=== PATIENT | female | born 1970 | race Caucasian/White ===

== ENCOUNTER 2018-02-13 18:20 | Emergency (ER) | payer OTHER ==
[2018-02-13 19:32] LABS: BILIRUBIN,URINE NEGATIVE (NEGATIVE); GLUCOSE, URINE (UA) NEGATIVE (NEGATIVE); KETONES,URINE (UA) NEGATIVE (NEGATIVE); LEUKOCYTE ESTERASE, URINE MODERATE (NEGATIVE); NITRITE,URINE NEGATIVE (NEGATIVE); OCCULT BLOOD,URINE TRACE-INTA (NEGATIVE); PROTEIN,URINE NEGATIVE (NEGATIVE); UROBILINOGEN,URINE 0.2 (NORMAL) E.U./dL (NORMAL)
[2018-02-13 19:39] LABS: CLARITY,URINE HAZY (CLEAR); HCG UR QUAL NEGATIVE
[2018-02-13 19:45] VITALS: BP 124/86
[2018-02-13 19:47] LABS: BACTERIA,URINE Few /HPF (None Seen); SQUAMOUS EPITHELIAL CELL,UR FEW Squamous (<= Few)
--- NOTE | 2018-02-13 20:12 | ED Physician Documentation ---
PD HPI ABD PAIN - Stated complaint Stated Complaint: ABD PX - Chief complaint Chief Complaint: Abd Pain - History obtained from History obtained from: Patient - History of Present Illness Timing - onset: How many days ago (5-6) Timing - duration: Days Timing - details: Gradual onset Pain level now: 6 Quality: Cramping, Pain Location: Other (initially across pelvis/lower abdomen, but now diffuse throughout abdomen) Radiation: No: Chest, , Lower back, Left flank, Left shoulder, Right flank, Right shoulder, Upper back Improved by: Other (nothing) Worsened by: Other (no exacerbating factors) Associated symptoms: Fever (subjective (felt as if she had a fever, did not cherie temp. at home)). No: Nausea, Vomiting, Diarrhea, Constipation Similar symptoms before: Diagnosis (similar to an episode of pyelonephritis she had in the past, although it has been many years and thus she is not particularly confident that these are same symptoms.) Recently seen: Not recently seen Review of Systems Constitutional: reports: Fever (subjective), Chills, Sweats Cardiac: reports: Reviewed and negative Respiratory: reports: Reviewed and negative GI: reports: Abdominal Pain. denies: Abdominal Swelling, Nausea, Vomiting, Constipation, Diarrhea : reports: Dysuria, Frequency Musculoskeletal: denies: Back pain PD PAST MEDICAL HISTORY - Past Medical History Past Medical History: No - Past Surgical History Past Surgical History: Yes General: Cholecystectomy - Present Medications Home Medications: Ambulatory Orders Medication Instructions Recorded Confirmed Amox/Clav 875/125 [Augmentin] 1 each PO Q12H #19 tablet 02/13/18 Hydrocodone/Acetaminophen 1 - 2 each PO Q6H PRN #10 tablet 02/13/18 [Hydrocodon-Acetaminophen 5-325] - Allergies Allergies/Adverse Reactions: Allergies Allergy/AdvReac Type Severity Reaction Status Date / Time No Known Drug Allergies Allergy Verified 02/13/18 18:47 - Living Situation Living Arrangement: reports: At home - Social History Does the pt smoke?: No PD ED PE NORMAL - Vitals Vital signs reviewed: Yes - General General: Alert and oriented X 3, No acute distress, Well developed/nourished - HEENT HEENT: Moist mucous membranes - Cardiac Cardiac: RRR, No murmur - Respiratory Respiratory: No respiratory distress, Clear bilaterally - Abdomen Abdomen: Normal bowel sounds, Soft, Other (mild tenderness periumbilicus, across lower abdomen (more pronounced left hemipelvis and midline suprapubic than remainder of pelvis and abdomen). no rebound nor guarding) - Back Back: Other (mild bilateral CVA tenderness) - Derm Derm: Normal color, Warm and dry Results - Vitals Vitals: Vital Signs - 24 hr 02/13/18 02/13/18 18:44 19:44 Temperature 37.7 C H Heart Rate 102 H 89 Respiratory 18 18 Rate Blood Pressure 132/90 H 124/86 H O2 Saturation 98 98 Oxygen O2 Source Room air - Labs Labs: Laboratory Tests 02/13/18 19:18 Urine Color YELLOW Urine Clarity HAZY Urine pH 7.0 Ur Specific Burney 1.015 Urine Protein NEGATIVE Urine Glucose (UA) NEGATIVE Urine Ketones NEGATIVE Urine Occult Blood TRACE-INTA Urine Nitrite NEGATIVE Urine Bilirubin NEGATIVE Urine Urobilinogen 0.2 (NORMAL) Ur Leukocyte Esterase MODERATE H Urine RBC 6-10 H Urine WBC >25 H Ur Squamous Epith Cells FEW Squamous Urine Bacteria Few Ur Microscopic Review INDICATED Urine Culture Comments INDICATED Urine HCG, Qual NEGATIVE PD MEDICAL DECISION MAKING - ED course Complexity details: reviewed results, considered differential, d/w patient ED course: UA s/o UTI. Offered patient further w/u, including blood tests and CT A/P (mainly looking for diverticulitis). She prefers to treat for suspected pyelonoephritis and defer further testing until and unless worsens, in which case she will return to ED. This is a reasonable alternative to further w/u now, and will give rocephin IM and augmentin PO with rx for augmentin (augmentin will have good chance of covering both pyelonephritis as well as diverticulitis). Departure - Departure Disposition: 01 Home, Self Care Clinical Impression: Pyelonephritis Condition: Good Instructions: ED Kidney Infec Female Follow-Up: [facility] [Provider Group] [facility] [Provider Group] Prescriptions: Amox/Clav 875/125 [Augmentin] 1 each PO Q12H #19 tablet Hydrocodone/Acetaminophen [Hydrocodon-Acetaminophen 5-325] 1 - 2 each PO Q6H PRN #10 tablet PRN Reason: pain Discharge Date/Time: 02/13/18 21:00
[2018-02-13] MEDS ORDERED: AMOX/CLAV 875 MG/125 MG TABLET PO STA (20:30)
[2018-02-13] MEDS ORDERED: LIDOCAINE 1% 2 ML VIAL SUBQ ONE (20:30)
[2018-02-13] MEDS ORDERED: cefTRIAXone 1 GM VIAL IM STA (20:30)
[2018-02-13] MEDS ORDERED: KETOROLAC 60 MG/2 ML VIAL IM STA (20:33)
[2018-02-13] MEDS ORDERED: HYDROcod/ACET 5/325 Prepack 4 PO STA (20:33)
== END 2018-02-13 21:00 | disposition home or self-care (01) ==
LOC: ED 18:20
DX: N12 Tubulo-interstitial nephritis, not specified as acute or chronic (principal)
CPT/HCPCS: 81001; 81025; 87086; 96372; 99283; 99284; A9270; 81003

== ENCOUNTER 2021-02-01 08:00 | Outpatient (CLI) | payer OTHER ==
--- NOTE | 2021-02-01 13:38 | XRAY Report ---
PROCEDURE: Ribs w/PA Chest LT INDICATIONS: LEFT SIDED RIB PAIN TECHNIQUE: 3 views of the left ribs were acquired, along with a single view chest. COMPARISON: None FINDINGS: Surgical changes and devices: None. Bones and chest wall: A marker is placed upon the area of pain. At this site, no fractures are seen. No fractures or dislocations are seen elsewhere. No suspicious bony lesions. Mild degenerative george nges are seen. The overlying soft tissues appear unremarkable. Lungs and pleura: No pleural effusions or pneumothorax. Lungs appear clear. Mediastinum: Mediastinal contours appear normal. Heart size is normal. IMPRESSION: No displaced rib fracture or pneumothorax can be seen. Reviewed by: Drake Smith MD on 02/01/2021 12:37 PM [facility] Approved by: Drake Smith MD on 02/01/2021 12:37 PM [facility] Station ID: [id number]
[2021-02-01 18:10] LABS: BASOPHILS # (AUTO) 0.1 10^3/uL (0.0-0.1); BASOPHILS % (AUTO) 1.3 %; EOSINOPHILS # (AUTO) 0.2 10^3/uL (0.0-0.7); EOSINOPHILS % (AUTO) 3.9 %; HCT - HEMATOCRIT 47.5 % (37.0-47.0); HGB - HEMOGLOBIN 16.6 g/dL (12.0-16.0); LYMPHOCYTES # (AUTO) 1.9 10^3/uL (1.5-3.5); LYMPHOCYTES % (AUTO) 31.5 %; MEAN CORPUSCULAR HEMOGLOBIN 34.5 pg (27.0-31.0); MEAN CORPUSCULAR HGB CONC 34.9 g/dL (32.0-36.0); MEAN CORPUSCULAR VOLUME 98.8 fL (81.0-99.0); MEAN PLATELET VOLUME 9.5 fL (7.9-10.8); MONOCYTES # (AUTO) 0.4 10^3/uL (0.0-1.0); NEUTROPHILS # (AUTO) 3.5 10^3/uL (1.5-6.6); PLT - PLATELET COUNT 238 10^3/uL (130-450); RED BLOOD COUNT 4.81 10^6/uL (4.20-5.40); RED CELL DISTRIBUTION WIDTH 11.4 % (12.0-15.0); WHITE BLOOD COUNT 6.2 x10^3/uL (4.8-10.8)
[2021-02-01 18:17] LABS: ALBUMIN 4.4 g/dL (3.2-5.5); ALBUMIN/GLOBULIN RATIO 1.2 (1.0-2.2); BILIRUBIN,TOTAL 1.1 mg/dL (0.2-1.0); CALCIUM 9.6 mg/dL (8.5-10.3); CREATININE 0.7 mg/dL (0.4-1.0); POTASSIUM 4.5 mmol/L (3.5-5.0); TOTAL PROTEIN 8.1 g/dL (6.7-8.2)
[2021-02-01 18:33] LABS: THYROID STIMULATING HORMONE 2.31 uIU/mL (0.34-5.60)
== END 2021-02-01 23:59 | disposition home or self-care (01) ==
LOC: DI.S 08:00
PROVIDERS: ATTEND Physician Assistant Medical
DX: R07.81 Pleurodynia (principal); I10 Essential (primary) hypertension
CPT/HCPCS: 36415; 80053; 84443; 85025

== ENCOUNTER 2021-02-19 08:00 | Outpatient (CLI) | payer OTHER ==
--- NOTE | 2021-02-19 16:25 | XRAY Report ---
PROCEDURE: Nasal Bones INDICATIONS: CONTUSION TO OTHER PART OF HEAD TECHNIQUE: 3 views of the nasal bones acquired. COMPARISON: None FINDINGS: Bones: Bilateral nondisplaced nasal bone fractures are noted. Nasal septum is midline. Normal nasoci liary nerve grooves are noted. Soft tissues: No suspicious soft tissue calcifications. IMPRESSION: Bilateral nondisplaced nasal bone fractures. Reviewed by: Sandra Bronson MD on 02/19/2021 4:23 PM [facility] Approved by: Sandra Bronson MD on 02/19/2021 4:23 PM [facility] Station ID: [id number]
== END 2021-02-19 23:59 | disposition home or self-care (01) ==
LOC: DI.S 08:00
PROVIDERS: ATTEND Physician Assistant Medical
DX: S02.2XXA Fracture of nasal bones, initial encounter for closed fracture (principal)

== ENCOUNTER 2021-07-11 08:00 | Outpatient (CLI) | payer OTHER ==
--- NOTE | 2021-07-11 10:38 | XRAY Report ---
PROCEDURE: Lumbar Spine 2 View INDICATIONS: LOW BACK PAIN TECHNIQUE: 3 views of the lumbar spine were acquired. COMPARISON: None. FINDINGS: Bones: 5 [id number] vertebrae are present. There is trace retrolisthesis of L3 on L4, L4-L5 an d L5 on S1. Multilevel moderate disc space narrowing is present. Bridging anterior osteophytes are pr esent at L3. Moderate to severe foraminal narrowing is present at L5-S1. No vertebral body compressio n fractures. No suspicious bony lesions. Soft tissues: Overlying bowel gas pattern is normal. No suspicious soft tissue calcifications. IMPRESSION: Degenerative changes most notable at L5-S1. Reviewed by: Sandra Bronson MD on 07/11/2021 10:36 AM PDT Approved by: Sandra Bronson MD on 07/11/2021 10:36 AM PDT Station ID: [id number]
== END 2021-07-11 23:59 | disposition home or self-care (01) ==
LOC: DI.S 08:00
PROVIDERS: ATTEND Physician Assistant
DX: M43.16 Spondylolisthesis, lumbar region (principal); M43.17 Spondylolisthesis, lumbosacral region; M47.816 Spondylosis without myelopathy or radiculopathy, lumbar region; M48.07 Spinal stenosis, lumbosacral region

== ENCOUNTER 2021-08-07 08:00 | Outpatient (CLI) | payer OTHER ==
--- NOTE | 2021-08-07 08:05 | XRAY Report ---
PROCEDURE: Chest 2 View X-Ray INDICATIONS: CHEST PAIN TECHNIQUE: 2 view(s) of the chest. COMPARISON: CXR 02/01/2021. FINDINGS: Surgical changes and devices: None. Lungs and pleura: No pleural effusions or pneumothorax. Lungs are clear. Mediastinum: Mediastinal contours are normal. Heart size is normal. Bones and chest wall: No suspicious bony abnormalities. Soft tissues appear unremarkable. IMPRESSION: No acute cardiopulmonary abnormality. Reviewed by: Charles Galicia MD on 08/07/2021 8:04 AM PDT Approved by: Charles Galicia MD on 08/07/2021 8:04 AM PDT Station ID: [id number]
[2021-08-07 15:47] LABS: BASOPHILS # (AUTO) 0.1 10^3/uL (0.0-0.1); BASOPHILS % (AUTO) 1.2 %; EOSINOPHILS # (AUTO) 0.4 10^3/uL (0.0-0.7); EOSINOPHILS % (AUTO) 4.8 %; HCT - HEMATOCRIT 47.8 % (37.0-47.0); HGB - HEMOGLOBIN 16.2 g/dL (12.0-16.0); LYMPHOCYTES # (AUTO) 2.4 10^3/uL (1.5-3.5); LYMPHOCYTES % (AUTO) 29.1 %; MEAN CORPUSCULAR HEMOGLOBIN 33.3 pg (27.0-31.0); MEAN CORPUSCULAR HGB CONC 33.9 g/dL (32.0-36.0); MEAN CORPUSCULAR VOLUME 98.4 fL (81.0-99.0); MEAN PLATELET VOLUME 10.2 fL (7.9-10.8); MONOCYTES # (AUTO) 0.6 10^3/uL (0.0-1.0); MONOCYTES % (AUTO) 6.9 %; NEUTROPHILS # (AUTO) 4.7 10^3/uL (1.5-6.6); NEUTROPHILS % (AUTO) 57.6 %; PLT - PLATELET COUNT 200 10^3/uL (130-450); RED BLOOD COUNT 4.86 10^6/uL (4.20-5.40); WHITE BLOOD COUNT 8.1 x10^3/uL (4.8-10.8)
[2021-08-07 16:44] LABS: ALBUMIN 3.9 g/dL (3.2-5.5); ALBUMIN/GLOBULIN RATIO 1.3 (1.0-2.2); BILIRUBIN,TOTAL 0.7 mg/dL (0.2-1.0); CALCIUM 9.5 mg/dL (8.5-10.3); CRP - C-REACTIVE PROTEIN 1.2 mg/dL (0-1.0); MAGNESIUM 1.8 mg/dL (1.7-2.8); POTASSIUM 4.4 mmol/L (3.5-5.0)
[2021-08-07 17:15] LABS: THYROID STIMULATING HORMONE 4.32 uIU/mL (0.34-5.60)
== END 2021-08-07 23:59 | disposition home or self-care (01) ==
LOC: DI.S 08:00
PROVIDERS: ATTEND Physician Assistant Medical
DX: R07.1 Chest pain on breathing (principal); R89.9 Unspecified abnormal finding in specimens from other organs, systems and tissues
CPT/HCPCS: 36415; 80053; 83735; 84443; 84484; 85025; 85651; 86140

== ENCOUNTER 2021-11-30 07:54 | Emergency (ER) | payer OTHER ==
[2021-11-30] MEDS ORDERED: oxyCODONE 5 MG TABLET PO STA ×2 (08:25→09:30)
--- NOTE | 2021-11-30 08:26 | ED Physician Documentation ---
History of Present Illness - Stated complaint Stated Complaint: FALL RIB/HIP PX - Chief complaint Chief Complaint: Trauma Ch/Bk - Additonal information Additional information: Patient is 51-year-old female presenting to the emergency department with left- sided shoulder, chest wall and hip pain. Pain ongoing since Tuesday. Reports tripped and fell while walking down stairs carrying laundry at her home. Has been taking ibuprofen at home with minimal relief. Was seen at urgent care earlier this morning and was referred to the emergency department for x-rays. Does report that she struck the side of her head but denies any loss of co nsciousness use of blood thinning medications. Otherwise denies for any headache, blurred vision, double vision, fevers, chills, neck pain, abdominal pain, nausea, vomiting, diarrhea or constipation. Review of Systems Ten Systems: 10 systems reviewed and negative Constitutional: denies: Fever Eyes: denies: Loss of vision Ears: denies: Loss of hearing Throat: denies: Dental pain / toothache Cardiac: denies: Palpitations GI: denies: Abdominal Pain : denies: Dysuria PD PAST MEDICAL HISTORY - Past Medical History GI: Cholelithiasis - Past Surgical History Past Surgical History: Yes General: Cholecystectomy - Present Medications Home Medications: Ambulatory Orders Medication Instructions Recorded Confirmed Amox/Clav 875/125 [Augmentin] 1 each PO Q12H #19 tablet 02/13/18 Hydrocodone/Acetaminophen 1 - 2 each PO Q6H PRN #10 tablet 02/13/18 [Hydrocodon-Acetaminophen 5-325] Acetaminophen [Tylenol] 650 mg PO Q6H PRN #30 tab 11/30/21 Ibuprofen [Motrin] 1 tablet PO Q8H PRN #30 tablet 11/30/21 Lidocaine Patch 5% [Lidoderm Patch] 1 patch TOP DAILY PRN #10 patch 11/30/21 Oxycodone HCl [Roxicodone] 5 mg PO Q6HR PRN #20 tablet 11/30/21 - Allergies Allergies/Adverse Reactions: Allergies Allergy/AdvReac Type Severity Reaction Status Date / Time No Known Drug Allergies Allergy Verified 11/30/21 08:17 - Social History Does the pt smoke?: No Smoking Status: Current every day smoker PD ED PE NORMAL - General General: Alert and oriented X 3, No acute distress - HEENT HEENT: Atraumatic, PERRL, EOMI, Ears normal - Neck Neck: Supple, no meningeal sign - Cardiac Cardiac: RRR, No gallop - Respiratory Respiratory: No respiratory distress, Other (Left-sided chest wall tenderness to palpation without crepitation or step-off. Negative for paradoxical breathing.) - Abdomen Abdomen: Normal bowel sounds - Female Female : Deferred - Rectal Rectal: Deferred - Back Back: No CVA TTP - Derm Derm: Normal color - Extremities Extremities: No deformity - Neuro Neuro: Alert and oriented X 3, manager qa 2-12 intact, No motor deficit Results - Vitals Vitals: Vital Signs - 24 hr 11/30/21 11/30/21 08:04 09:35 Temperature 36.3 C L Heart Rate 84 65 Respiratory 20 18 Rate Blood Pressure 150/83 H 127/93 H O2 Saturation 96 99 Oxygen O2 Source Room air PD MEDICAL DECISION MAKING - ED course Complexity details: reviewed results, d/w patient, d/w family ED course: Patient presents to the emergency department with 2 days pain left shoulder, chest wall and hip. Afebrile, hemodynamically stable. No tenderness to the cervical spine. Patient endorsed for mild head trauma without loss of consciousness or use of blood thinning medications. No ongoing headache, focal or lateralizing neurologic symptoms and no indication for advanced imaging of the brain. X-rays of the left shoulder showed some degenerative changes in the joint but no fracture. Chest and hip x-rays were similarly negative. Patient did have significant pain with attempting to abduct her left shoulder. She was provided with a shoulder sling. Additionally she was given medication for pain control. She passed an ambulatory trial here in the emergency department with the assistance of a walker. At this time I will discharge for follow-up with primary care. Will discharge with medication for symptomatic management including regular alternating Motrin and Tylenol as well as Roxicodone for breakthrough pain. She was encouraged to follow-up with primary care and or return to the emergency department as needed. Departure - Departure Disposition: 01 Home, Self Care Clinical Impression: Shoulder injury, Rib pain on left side, Hip pain Instructions: ED Contusion Chest Wall Prescriptions: Oxycodone HCl [Roxicodone] 5 mg PO Q6HR PRN #20 tablet PRN Reason: Pain Lidocaine Patch 5% [Lidoderm Patch] 1 patch TOP DAILY PRN #10 patch PRN Reason: pain Ibuprofen [Motrin] 1 tablet PO Q8H PRN #30 tablet PRN Reason: PAIN &/OR FEVER Acetaminophen [Tylenol] 650 mg PO Q6H PRN #30 tab PRN Reason: Pain Comments: Thank you for allowing us to care for you today at [facility]. The x-rays taken today of your shoulder, rib cage and hip did not show any acute fracture. As we discussed chest wall injuries can be persistent and quite painful and can take time to heal. I have written you for some medication to begin taking at home. I recommend regular alternating Motrin and Tylenol. I have also written you for a stronger narcotic pain medication known as Roxicodone. Please be aware that this medication is both sedating and habit-forming. It should not be used if you are operating a motor vehicle, using of machinery or you are the sole auto damage trainee of young children. It cannot be refilled in the emergency department. I do recommend acquiring a pill splitter and taking half doses until you are familiar with how this medication affects you personally. Please drink plenty of fluids. I recommend gentle activity as tolerated is complete inactivity can make pain such as which you are experiencing worse. It is also important that you follow-up with your primary care doctor soon as possible for medical recheck. If it anytime you have any new or worsening symptoms please not hesitate to return.
--- NOTE | 2021-11-30 09:07 | XRAY Report ---
PROCEDURE: Ribs w/PA Chest LT INDICATIONS: Trauma- Fall TECHNIQUE: 2 views of the left ribs were acquired, along with a single view chest. COMPARISON: None FINDINGS: Surgical changes and devices: None. Bones and chest wall: No fractures or dislocations. No suspicious bony lesions. Overlying soft tis sues appear unremarkable. Lungs and pleura: No pleural effusions or pneumothorax. Lungs appear clear. Mediastinum: Mediastinal contours appear normal. Heart size is normal. IMPRESSION: No visible displaced left rib fractures. No radiographic evidence of underlying chest trauma. Reviewed by: Louise Granados MD on 11/30/2021 9:05 AM PDT Approved by: Louise Granados MD on 11/30/2021 9:05 AM PDT Station ID: [id number]
--- NOTE | 2021-11-30 09:07 | XRAY Report ---
PROCEDURE: Shoulder 3 View LT INDICATIONS: Trauma- Fall TECHNIQUE: 3 views of the shoulder were acquired. COMPARISON: None. FINDINGS: Bones: No fractures or dislocations. Mild left AC joint degenerative spurring. No suspicious bony le sions. Visualized ribs appear intact. Soft tissues: No suspicious soft tissue calcifications. IMPRESSION: 1. Intact left shoulder with mild AC joint degeneration. Reviewed by: Louise Granados MD on 11/30/2021 9:06 AM PDT Approved by: Louise Granados MD on 11/30/2021 9:06 AM PDT Station ID: [id number]
--- NOTE | 2021-11-30 09:08 | XRAY Report ---
PROCEDURE: Hip w/Pelvis 2-3V LT INDICATIONS: Trauma- Fall TECHNIQUE: AP pelvis with lateral view(s) of the left hip(s). COMPARISON: None. FINDINGS: Bones: No fractures or dislocations. Pelvic ring appears intact. No suspicious bony lesions. Soft tissues: The visualized bowel gas pattern is normal. No suspicious soft tissue calcifications. IMPRESSION: No pelvic or left hip fracture visible. Reviewed by: Louise Granados MD on 11/30/2021 9:07 AM PDT Approved by: Louise Granados MD on 11/30/2021 9:07 AM PDT Station ID: [id number]
[2021-11-30] MEDS ORDERED: LIDOCAINE PATCH 5% TOP STA (09:30)
[2021-11-30] MEDS: IBUPROFEN 600 MG TABLET PO STA (09:49)
[2021-11-30 11:17] VITALS: BP 127/88
== END 2021-11-30 11:27 | disposition home or self-care (01) ==
LOC: ED 07:54
DX: S79.912A Unspecified injury of left hip, initial encounter (principal); S29.9XXA Unspecified injury of thorax, initial encounter; S09.90XA Unspecified injury of head, initial encounter; W10.9XXA Fall (on) (from) unspecified stairs and steps, initial encounter; F17.200 Nicotine dependence, unspecified, uncomplicated
CPT/HCPCS: 71101; 73030; 73502; 99284; A9270

== ENCOUNTER 2022-03-19 10:15 | Outpatient (CLI) | payer SELFPAY ==
--- NOTE | 2022-03-19 11:46 | XRAY Report ---
PROCEDURE: Ankle 3 View LT INDICATIONS: LEFT ANKLE PAIN TECHNIQUE: 3 views of the ankle were acquired. COMPARISON: None. FINDINGS: Bones: There is an oblique fracture of the distal fibula without displacement involving the ankle mo rtise. An oblique fracture seen in the medial malleolus. There is a small chip fracture of the heat sealing machine operator ior malleolus. Ankle mortise is widened medially. No suspicious bony lesions. Degenerative joint d isease. Calcaneus spurring. Soft tissues: Small tibiotalar joint effusion. Achilles tendon appears normal. IMPRESSION: 1. Trimalleolar fractures. 2. Widening of the medial ankle joint space. Reviewed by: Lorena Amato MD on 03/19/2022 11:45 AM PST Approved by: Lorena Amato MD on 03/19/2022 11:45 AM PST Station ID: [id number]
== END 2022-03-19 10:16 | disposition home or self-care (01) ==
LOC: DI.S 10:15
PROVIDERS: ATTEND Physician Assistant
DX: S82.852A Displaced trimalleolar fracture of left lower leg, initial encounter for closed fracture (principal); M19.072 Primary osteoarthritis, left ankle and foot

== ENCOUNTER 2022-10-19 15:41 | Emergency (ER) | payer MEDICAID ==
--- NOTE | 2022-10-19 15:58 | ED Physician Documentation ---
History of Present Illness - Stated complaint Stated Complaint: CHEST PX - Chief complaint Chief Complaint: Cardiac - Additonal information Additional information: Patient 52-year-old female presenting to the emergency department chief compl aint chest pain. Reports squeezing substernal chest pain that occurred earlier this morning. Reports has had similar episodes in the past about once every few months. It was sitting at her computer and not doing anything stressful or exertional at the time of the event. Does report that she had an espresso drink immediately prior to the event but does not report previous associations with food. Does endorse for history of hypertension. Returned home and contacted her primary care doctor and was referred to the emergency department. Currently denies any symptoms. No associated fever, shortness of breath, abdominal pain, Review of Systems Constitutional: denies: Fever Eyes: denies: Loss of vision Ears: denies: Loss of hearing Nose: denies: Rhinorrhea / runny nose Throat: denies: Dental pain / toothache Cardiac: reports: Chest pain / pressure, Palpitations Respiratory: denies: Dyspnea, Cough GI: denies: Abdominal Pain, Nausea, Vomiting : denies: Dysuria PD PAST MEDICAL HISTORY - Past Medical History GI: Cholelithiasis - Past Surgical History Past Surgical History: Yes General: Cholecystectomy - Present Medications Home Medications: Ambulatory Orders Medication Instructions Recorded Confirmed Amox/Clav 875/125 [Augmentin] 1 each PO Q12H #19 tablet 02/13/18 Hydrocodone/Acetaminophen 1 - 2 each PO Q6H PRN #10 tablet 02/13/18 [Hydrocodon-Acetaminophen 5-325] Acetaminophen [Tylenol] 650 mg PO Q6H PRN #30 tab 11/30/21 Ibuprofen [Motrin] 1 tablet PO Q8H PRN #30 tablet 11/30/21 Lidocaine Patch 5% [Lidoderm Patch] 1 patch TOP DAILY PRN #10 patch 11/30/21 Oxycodone HCl [Roxicodone] 5 mg PO Q6HR PRN #20 tablet 11/30/21 Pantoprazole [Protonix] 40 mg PO DAILY #30 tablet 10/19/22 - Allergies Allergies/Adverse Reactions: Allergies Allergy/AdvReac Type Severity Reaction Status Date / Time No Known Drug Allergies Allergy Verified 11/30/21 08:17 - Social History Does the pt smoke?: No Smoking Status: Current every day smoker PD ED PE NORMAL - General General: Alert and oriented X 3, No acute distress - HEENT HEENT: Atraumatic, PERRL - Neck Neck: Supple, no meningeal sign, No bony TTP, No adenopathy - Cardiac Cardiac: RRR, No gallop, Strong equal pulses - Respiratory Respiratory: No respiratory distress, Clear bilaterally, Other - Abdomen Abdomen: Normal bowel sounds, Soft, Non tender, Non distended - Female Female : Deferred - Rectal Rectal: Deferred - Back Back: No CVA TTP - Derm Derm: Normal color - Extremities Extremities: No deformity - Neuro Neuro: Alert and oriented X 3, orthopedic shoe maker 2-12 intact, No motor deficit, No sensory deficit, Normal speech Results - Vitals Vitals: Oxygen O2 Source Room air - EKG (time done) 1515 EKG releavant findings:: EKG personally interpreted by author of this note. Relevant findings are: Sinus rhythm with rate 71 bpm. Normal axis. Normal NH, QRS, QTc intervals. No ST segment elevations or T wave inversions. - Labs Labs: Laboratory Tests 10/19/22 10/19/22 10/19/22 16:11 16:11 16:30 WBC 7.5 RBC 4.76 Hgb 15.9 Hct 46.2 MCV 97.1 MCH 33.4 H MCHC 34.4 RDW 12.7 Plt Count 192 MPV 9.4 Neut # (Auto) 3.8 Lymph # (Auto) 2.9 [place] # (Auto) 0.4 Eos # (Auto) 0.3 Baso # (Auto) 0.1 Absolute Nucleated RBC 0.00 Nucleated RBC % 0.0 D-Dimer < 200.0 L Sodium 137 Potassium 3.9 Chloride 105 Carbon Dioxide 27 Anion Gap 5.0 L BUN 13 Creatinine 0.8 Estimated GFR (MDRD) 75 L Glucose 131 H Calcium 9.8 Total Bilirubin 0.6 AST 85 H ALT 77 H Alkaline Phosphatase 91 Troponin I High Sens 2.8 Total Protein 7.1 Albumin 4.3 Globulin 2.8 Albumin/Globulin Ratio 1.5 Lipase 51 10/19/22 17:44 WBC RBC Hgb Hct MCV MCH MCHC RDW Plt Count MPV Neut # (Auto) Lymph # (Auto) [place] # (Auto) Eos # (Auto) Baso # (Auto) Absolute Nucleated RBC Nucleated RBC % D-Dimer Sodium Potassium Chloride Carbon Dioxide Anion Gap BUN Creatinine Estimated GFR (MDRD) Glucose Calcium Total Bilirubin AST ALT Alkaline Phosphatase Troponin I High Sens 2.6 Total Protein Albumin Globulin Albumin/Globulin Ratio Lipase PD Medical Decision Making - ED course Complexity details: reviewed results, re-evaluated patient, d/w patient, d/w solar energy consultant and designer ED course: Patient 52-year-old female presenting to the emergency department with chief complaint of chest pain. Patient does have history of hypertension but is otherwise relatively low risk for coronary artery disease per heart scoring. Pain resolved prior to arrival. EKG benign. Serial high-sensitivity troponins benign. D-dimer negative. Chest x-ray negative for pneumothorax, mediastinal widening. At this time will discharge for follow-up with primary care. Will initiate course Protonix and encourage patient to abstain from caffeine in the immediate future. Clear return precautions given. Departure - Departure Disposition: 01 Home, Self Care Clinical Impression: Chest pain Qualifiers: Chest pain type: unspecified Qualified Code(s): R07.9 - Chest pain, unspecified Condition: Stable Instructions: ED Chest Pain Atypical Unkn Cause Prescriptions: Pantoprazole [Protonix] 40 mg PO DAILY #30 tablet Comments: Thank you for allowing us to care for you today would be general. Today in the emergency department your evaluated for any possible life- threatening medical emergency. All of the testing performed in the emergency department today including your blood work, EKG, chest x-ray were all very reassuring. As we discussed I will be prescribing a short course of an oral antiacid medication and like you to begin taking each morning. Please avoid caffeine for the time being. Please continue to follow-up carefully with your primary care doctor concerning your blood pressure as well as to discuss your ED visit. If it anytime you have a recurrent episode of chest pain or pressure or if you have any new or worsening symptoms please return to the emergency department. Forms: PCP List Discharge Date/Time: 10/19/22 18:37
[2022-10-19 16:16] LABS: BASOPHILS # (AUTO) 0.1 10^3/uL (0.0-0.1); BASOPHILS % (AUTO) 0.9 %; EOSINOPHILS # (AUTO) 0.3 10^3/uL (0.0-0.7); EOSINOPHILS % (AUTO) 3.6 %; HCT - HEMATOCRIT 46.2 % (37.0-47.0); HGB - HEMOGLOBIN 15.9 g/dL (12.0-16.0); LYMPHOCYTES # (AUTO) 2.9 10^3/uL (1.5-3.5); LYMPHOCYTES % (AUTO) 38.4 %; MEAN CORPUSCULAR HEMOGLOBIN 33.4 pg (27.0-31.0); MEAN CORPUSCULAR HGB CONC 34.4 g/dL (32.0-36.0); MEAN CORPUSCULAR VOLUME 97.1 fL (81.0-99.0); MEAN PLATELET VOLUME 9.4 fL (7.9-10.8); MONOCYTES # (AUTO) 0.4 10^3/uL (0.0-1.0); MONOCYTES % (AUTO) 5.5 %; NEUTROPHILS # (AUTO) 3.8 10^3/uL (1.5-6.6); NEUTROPHILS % (AUTO) 51.5 %; PLT - PLATELET COUNT 192 10^3/uL (130-450); RED BLOOD COUNT 4.76 10^6/uL (4.20-5.40); RED CELL DISTRIBUTION WIDTH 12.7 % (12.0-15.0); WHITE BLOOD COUNT 7.5 x10^3/uL (4.8-10.8)
--- NOTE | 2022-10-19 16:31 | XRAY Report ---
PROCEDURE: Chest 1 View X-Ray INDICATIONS: Chest Pain TECHNIQUE: One view of the chest was acquired. COMPARISON: None. FINDINGS: Surgical changes and devices: None. Lungs and pleura: No pleural effusions or pneumothorax. Lungs are clear. Mediastinum: Mediastinal contours appear normal. Heart size is normal. Bones and chest wall: No suspicious bony lesions. Overlying soft tissues appear unremarkable. IMPRESSION: No acute cardiopulmonary process. Reviewed by: Serena Vance MD, PhD on 10/19/2022 4:29 PM PDT Approved by: Serena Vance MD, PhD on 10/19/2022 4:29 PM PDT Station ID: [id number]
[2022-10-19 16:34] LABS: ALBUMIN 4.3 g/dL (3.2-5.5); ALBUMIN/GLOBULIN RATIO 1.5 (1.0-2.2); BILIRUBIN,TOTAL 0.6 mg/dL (0.2-1.0); CALCIUM 9.8 mg/dL (8.5-10.3); CREATININE 0.8 mg/dL (0.6-1.3); POTASSIUM 3.9 mmol/L (3.5-4.5); TOTAL PROTEIN 7.1 g/dL (6.4-8.9)
[2022-10-19 16:38] LABS: TROPONIN I HIGH SENSITIVITY 2.8 ng/L (2.3-14.8)
[2022-10-19] MEDS ORDERED: GI COCKTAIL 120 ML BOTTLE PO PRN (17:37)
[2022-10-19 18:45] VITALS: BP 130/80; O2SAT 100
== END 2022-10-19 18:37 | disposition home or self-care (01) ==
LOC: ED 15:41
DX: R07.9 Chest pain, unspecified (principal); F17.200 Nicotine dependence, unspecified, uncomplicated
CPT/HCPCS: 36415; 71045; 80053; 83690; 84484; 85025; 85379; 93005; 99284; A9270

== ENCOUNTER 2023-06-29 08:54 | Emergency (ER) | payer MEDICAID, OTHER ==
--- NOTE | 2023-06-29 09:53 | ED Physician Documentation ---
PD HPI ABD PAIN - Stated complaint Stated Complaint: ABD PX - Chief complaint Chief Complaint: Abd Pain - History obtained from History obtained from: Patient - History of Present Illness Timing - onset: Yesterday (has history of GERD and intermittent gastric pains with certain foods, but had onset of persistent and severe pains epigastric starting yesterday that has persisted, worse with eating but not improved with TUMs, antacids. Took extra dose of omeprazole without improvemnt.) Timing - details: Gradual onset, Still present, Waxing and waning Quality: Cramping, Aching, Pain Location: Epigastric Radiation: No: Chest, Lower back Improved by: No: Eating, Position, Meds Worsened by: Eating. No: Position Associated symptoms: Nausea. No: Fever, Vomiting, Diarrhea, Melena Similar symptoms before: Diagnosis (GERD/gastritis symptoms in past often but not ever to this degree.) Recently seen: Clinic (few e=weeks ago and had her omeprazole dose decreased from DQ to DOD since was doing well with her symptoms.) Review of Systems Constitutional: denies: Fever, Chills Cardiac: denies: Chest pain / pressure Respiratory: denies: Dyspnea, Cough GI: reports: Abdominal Pain, Nausea. denies: Vomiting, Diarrhea, Bloody / black stool PD PAST MEDICAL HISTORY - Past Medical History Past Medical History: Yes Cardiovascular: Hypertension GI: GERD, Cholelithiasis - Past Surgical History Past Surgical History: Yes General: Cholecystectomy HEENT: Tonsil/Adenoidectomy - Present Medications Home Medications: Ambulatory Orders Medication Instructions Recorded Confirmed HYDROcod/ACETAM 5/325 [Apache 5/325] 1 ea PO Q6H PRN #18 tablet 06/29/23 Lidocaine Viscous 2% [Xylocaine 5 ml PO Q4H PRN #100 ml 06/29/23 Viscous 2%] Naproxen 500 mg PO BID PRN 06/29/23 06/29/23 Omeprazole 20 mg PO DAILY 06/29/23 06/29/23 Propranolol [Inderal] 20 mg PO DAILY 06/29/23 06/29/23 Sucralfate [Carafate] 1 gm PO ACHS #60 tablet 06/29/23 Sucralfate [Carafate] 1 gm PO ACHS 10 Days #400 ml 06/29/23 - Allergies Allergies/Adverse Reactions: Allergies Allergy/AdvReac Type Severity Reaction Status Date / Time No Known Drug Allergies Allergy Verified 06/29/23 09:29 - Social History Does the pt smoke?: No Smoking Status: Former smoker Does the pt drink ETOH?: No Does the pt have substance abuse?: Yes PD ED PE NORMAL - Vitals Vital signs reviewed: Yes - General General: Alert and oriented X 3, No acute distress, Well developed/nourished - Neck Neck: Supple, no meningeal sign, No adenopathy - Cardiac Cardiac: RRR, No murmur - Respiratory Respiratory: No respiratory distress, Clear bilaterally - Abdomen Abdomen: Normal bowel sounds, Soft, Non distended, Other (tender with local guarding and mild rebound in epigastric area. Not particularly tender RUQ. Lower abd not tender and no distension. ) Results - Vitals Vitals: Vital Signs - 24 hr 06/29/23 06/29/23 06/29/23 11:29 12:58 14:41 Temperature 36.7 C Heart Rate 63 60 58 L Respiratory 17 17 15 Rate Blood Pressure 120/96 H 132/78 H 138/87 H O2 Saturation 98 99 98 Oxygen O2 Source Room air - Labs Labs: Laboratory Tests 06/29/23 06/29/23 06/29/23 10:26 10:26 10:26 WBC 9.5 RBC 4.91 Hgb 16.9 H Hct 48.6 H MCV 99.0 MCH 34.4 H MCHC 34.8 RDW 12.3 Plt Count 171 MPV 9.4 Neut # (Auto) 5.8 Lymph # (Auto) 2.7 [place] # (Auto) 0.7 Eos # (Auto) 0.3 Baso # (Auto) 0.1 Absolute Nucleated RBC 0.00 Nucleated RBC % 0.0 Sodium 136 Potassium 4.2 Chloride 99 L Carbon Dioxide 30 Anion Gap 7.0 BUN 11 Creatinine 0.8 Estimated GFR (MDRD) 75 L Glucose 104 Calcium 10.5 H Total Bilirubin 1.1 H AST 51 H ALT 65 H Alkaline Phosphatase 92 Troponin I High Sens < 2.3 L Total Protein 7.6 Albumin 4.4 Globulin 3.2 Albumin/Globulin Ratio 1.4 Lipase 34 Urine Color Urine Clarity Urine pH Ur Specific [place] Urine Protein Urine Glucose (UA) Urine Ketones Urine Occult Blood Urine Nitrite Urine Bilirubin Urine Urobilinogen Ur Leukocyte Esterase Ur Microscopic Review Urine Culture Comments 06/29/23 10:30 WBC RBC Hgb Hct MCV MCH MCHC RDW Plt Count MPV Neut # (Auto) Lymph # (Auto) [place] # (Auto) Eos # (Auto) Baso # (Auto) Absolute Nucleated RBC Nucleated RBC % Sodium Potassium Chloride Carbon Dioxide Anion Gap BUN Creatinine Estimated GFR (MDRD) Glucose Calcium Total Bilirubin AST ALT Alkaline Phosphatase Troponin I High Sens Total Protein Albumin Globulin Albumin/Globulin Ratio Lipase Urine Color DARK YELLOW Urine Clarity CLEAR Urine pH 6.0 Ur Specific [place] 1.010 Urine Protein NEGATIVE Urine Glucose (UA) NEGATIVE Urine Ketones NEGATIVE Urine Occult Blood NEGATIVE Urine Nitrite NEGATIVE Urine Bilirubin NEGATIVE Urine Urobilinogen 0.2 (NORMAL) Ur Leukocyte Esterase NEGATIVE Ur Microscopic Review NOT INDICATED Urine Culture Comments NOT INDICATED - Rads (name of study) chest xray Relevant Findings:: Prelim report reviewed, EMP independent interpretation of test (no acutee process) abd/pelvic CT Relevant Findings:: Prelim report reviewed (GB absent. Normal common bile duct, pancreas. Hepatic steatosis. Normal aorta. No mention of free air/fluid. Diverticula wihtout diverticulitis. ), EMP independent interpretation of test PD Medical Decision Making - ED course Complexity details: reviewed results (prolonged delay of over [address] report as imaging apparently did not fully cross on [facility] end so Radiologist unaware of pending reads. Subsequently fixed and got readings. No acute process. ), re-evaluated patient (moderate improvement with Lido/mylanta and carafate. She is driving home so we discussed not giving opioid meds here and she agrees, rather than finding ride. ), considered differential ( gastritis/ulcer type pain but not reasonably improved with antacids and is persistent even when resting. Tender locally with guarding. Concern for alternate dx such as pancreatic, biliary, diverticulitis transverse colon, or complicated stomach issues such as perforation. Will get labs, CT. ), d/w patient Reviewed Lab Results: Labs showing normal lipase 34 and minimally elevated LFTs with bili 1.1 (nl up to 1.0) and AST/ALT in 50-60 range. Normal alk phos at 92. CT showing noral common bile duct without dilation, absent gallbladder, no noted perforations or such around stomach. Diverticula wihtout diverticulitis. She had recently been decreased on her omeprazole from daily to every other day by her PCP. This was 3 weeks ago. I would suggest a failure of this weaning amount and have her return to daily, and short term can go BID and add Carafate. See if improves ad then continue on daily. If still with difficult symptoms, then consider H.Pylori testing as well. Departure - Departure Disposition: 01 Home, Self Care Clinical Impression: Epigastric abdominal pain Condition: Stable Record reviewed to determine appropriate education?: Yes Instructions: ED PUD Vs Gastritis, ED Epigastric Pain [facility] Follow-Up: Evon Lawson ARNP [Primary Care Provider] - Prescriptions: Sucralfate [Carafate] 1 gm PO ACHS 10 Days #400 ml Sucralfate [Carafate] 1 gm PO ACHS #60 tablet HYDROcod/ACETAM 5/325 [[place] 5/325] 1 ea PO Q6H PRN #18 tablet PRN Reason: Pain Lidocaine Viscous 2% [Xylocaine Viscous 2%] 5 ml PO Q4H PRN #100 ml PRN Reason: Pain Comments: I would resume your omeprazole daily and actually is heart back with it at twice a day for the next week and then once daily from there. In addition we can coat the stomach several times daily with sacral fate which acts to coat the surface and is "stickier" then regular antacids and such. Add antacid such as Maalox or Mylanta with the lidocaine as needed for discomfort. Avoid NSAIDs, alcohol, spicy foods. Tylenol 500 mg 4 times daily as needed for pain or hydrocodone/acetaminophen if needed for worse pain. This would hopefully be intended short-term until your stomach has a better chance of healing. You do have a slight elevation of liver enzymes but not significantly. No signs of problems with your common bile duct or pancreas. No signs of perforation around the stomach. Presume you have a enough erosion and irritation in the esophagus or stomach to be hurting and not responding to just surface treatment like the antacids. Follow-up with your primary care in about a week, call for an appointment. I sent your prescriptions to the [facility] in [place]. Return if worse. I am prescribing a short course of narcotic pain medication for you. These are potentially dangerous and addictive medications that should be used carefully. These medications may constipate you. Take an [id number] stool softener such as docusate twice daily with plenty of water while taking these medications. If you go 24 hours without a bowel movement, take [id number] MiraLAX, per package instructions. Do not drink or drive while taking these medications. If you received narcotic or sedating medications while in the emergency department do not drive for 24 hours. Store this medication in a safe, secure place and out of reach of children. It is a violation of federal law to give or sell this medication to another person or to use in a manner other than prescribed. The ED will not refill narcotic prescriptions, including prescriptions lost or stolen. You can dispose of unwanted medications at the [facility]'s office or at several pharmacies such as [facility]. Forms: PCP List, Activity restrictions Discharge Date/Time: 06/29/23 14:48
[2023-06-29 10:36] LABS: BASOPHILS # (AUTO) 0.1 10^3/uL (0.0-0.1); EOSINOPHILS # (AUTO) 0.3 10^3/uL (0.0-0.7); EOSINOPHILS % (AUTO) 2.9 %; HCT - HEMATOCRIT 48.6 % (37.0-47.0); HGB - HEMOGLOBIN 16.9 g/dL (12.0-16.0); LYMPHOCYTES # (AUTO) 2.7 10^3/uL (1.5-3.5); MEAN CORPUSCULAR HEMOGLOBIN 34.4 pg (27.0-31.0); MEAN CORPUSCULAR HGB CONC 34.8 g/dL (32.0-36.0); MEAN PLATELET VOLUME 9.4 fL (7.9-10.8); MONOCYTES # (AUTO) 0.7 10^3/uL (0.0-1.0); MONOCYTES % (AUTO) 7.3 %; NEUTROPHILS # (AUTO) 5.8 10^3/uL (1.5-6.6); NEUTROPHILS % (AUTO) 60.5 %; PLT - PLATELET COUNT 171 10^3/uL (130-450); RED BLOOD COUNT 4.91 10^6/uL (4.20-5.40); RED CELL DISTRIBUTION WIDTH 12.3 % (12.0-15.0); WHITE BLOOD COUNT 9.5 x10^3/uL (4.8-10.8)
[2023-06-29] MEDS: LIDOCAINE VISCOUS 2% 15 ML UDC MM STA ×2 (10:42→14:29)
[2023-06-29] MEDS: MAG HYDROX/AL HYDROX/SIMETH 30 ML UDC PO STA ×2 (10:42→14:29)
[2023-06-29] MEDS: KETOROLAC 15 MG/ML VIAL IVP STA (10:43)
[2023-06-29] MEDS: FAMOTIDINE 20 MG/2 ML VIAL IVP STA (10:43)
[2023-06-29 10:55] LABS: BILIRUBIN,URINE NEGATIVE (NEGATIVE); CLARITY,URINE CLEAR (CLEAR); GLUCOSE, URINE (UA) NEGATIVE (NEGATIVE); KETONES,URINE (UA) NEGATIVE (NEGATIVE); LEUKOCYTE ESTERASE, URINE NEGATIVE (NEGATIVE); NITRITE,URINE NEGATIVE (NEGATIVE); OCCULT BLOOD,URINE NEGATIVE (NEGATIVE); PROTEIN,URINE NEGATIVE (NEGATIVE); UROBILINOGEN,URINE 0.2 (NORMAL) E.U./dL (NORMAL)
[2023-06-29 11:05] LABS: ALBUMIN 4.4 g/dL (3.2-5.5); ALBUMIN/GLOBULIN RATIO 1.4 (1.0-2.2); BILIRUBIN,TOTAL 1.1 mg/dL (0.2-1.0); CALCIUM 10.5 mg/dL (8.5-10.3); CREATININE 0.8 mg/dL (0.6-1.3); POTASSIUM 4.2 mmol/L (3.5-4.5); TOTAL PROTEIN 7.6 g/dL (6.4-8.9)
[2023-06-29] MEDS ORDERED: iohexoL-300 100 ML VIAL ONE (11:15)
--- NOTE | 2023-06-29 11:36 | XRAY Report ---
PROCEDURE: Chest 1V INDICATIONS: epigastric pain TECHNIQUE: One view of the chest was acquired. COMPARISON: Chest radiograph 10/19/2022. FINDINGS: Surgical changes and devices: None. Lungs and pleura: No pleural effusions or pneumothorax. Lungs are clear. Mediastinum: Mediastinal contours appear normal. Heart size is normal. Bones and chest wall: No suspicious bony lesions. Overlying soft tissues appear unremarkable. IMPRESSION: No acute cardiopulmonary process. Reviewed by: Martina Carpenter MD, PhD on 06/29/2023 11:35 AM PDT Approved by: Martina Carpenter MD, PhD on 06/29/2023 11:35 AM PDT Station ID: [id number]
[2023-06-29] MEDS: iohexoL-300 100 ML VIAL IVP ONE (11:59)
--- NOTE | 2023-06-29 13:46 | CT Report ---
PROCEDURE: Abdomen/Pelvis W INDICATIONS: epigastric pain abrupt CONTRAST: 100 TECHNIQUE: After the administration of intravenous contrast, a CT scan of the abdomen and pelvis was performed. Images were recorded and evaluated at appropriate window settings. Reformats: coronal and sagittal. F or radiation dose reduction, the following was used: automated exposure control, adjustment of mA and /or kV according to patient size. COMPARISON: None. FINDINGS: Image quality: Diagnostic. Lower chest: Bibasilar atelectasis. Liver: No solid mass. Hepatic steatosis. Gallbladder and biliary tree: Surgically absent. No biliary dilation, accounting for post-cholecystec yojana state. Spleen: No splenomegaly. Pancreas: No pancreatic ductal dilation. Adrenals: No adrenal nodule. Kidneys and ureters: No hydronephrosis. No renal cystic lesion which requires follow up. No solid mas s. Stomach, bowel and peritoneum: No bowel distension. No pathologic free fluid. Diverticulosis without evidence of diverticulitis. Lymph nodes: No central or retroperitoneal adenopathy. Vessels: No infrarenal aortic aneurysm. PELVIS Reproductive organs: Unremarkable. Bladder: No abnormal wall thickening, accounting for underdistention. Pelvic lymph nodes: No pelvic adenopathy by size criteria. Bones: No aggressive osseous abnormality. Other: No significant ventral or inguinal hernia. IMPRESSION: Hepatic steatosis. No other acute process in the abdomen or pelvis visualized to explain patient's sy mptoms.. Reviewed by: Martina Carpenter MD, PhD on 06/29/2023 1:45 PM PDT Approved by: Martina Carpenter MD, PhD on 06/29/2023 1:45 PM PDT Station ID: [id number]
[2023-06-29] MEDS: SUCRALFATE 1 GM/10 ML UDC PO STA (14:29)
[2023-06-29 14:59] VITALS: BP 138/87; O2SAT 98
== END 2023-06-29 14:48 | disposition home or self-care (01) ==
LOC: ED 08:54
DX: R10.13 Epigastric pain (principal); R79.89 Other specified abnormal findings of blood chemistry; I10 Essential (primary) hypertension; Z87.19 Personal history of other diseases of the digestive system
CPT/HCPCS: 36415; 71045; 74177; 80053; 81003; 83690; 84484; 85025; 93005; 96374; 99284; A9270; Q9967; 81001; 87086